=== PATIENT | male | born 1990 | race Caucasian/White ===

== ENCOUNTER 2018-10-27 10:29 | Emergency (ER) | payer OTHER ==
[~2018-10-27] VITALS: Ht 170.2 cm; Wt 79.4 kg
--- NOTE | 2018-10-27 10:34 | NUR ---
PT BIB SELF C/O FLU LIKE SYMPTOMS AND FEVER, PT IS AAOX4, NOT IN RESPIRATORY DISTRESS, HOOKED TO MONITOR, KEPT RESTED AND COMFORTABLE, WILL CONTINUE TO MONITOR.
--- NOTE | 2018-10-27 10:52 | NUR ---
SEEN AND EXAMINED BY .
--- NOTE | 2018-10-27 10:55 | NUR ---
PRODUCTION ASSISTANT AT BEDSIDE FOR XRAY.
--- NOTE | 2018-10-27 10:56 | NUR ---
IV LINE ESTABLISHED, BLOOD DRAWNED AND SENT TO LAB.
[2018-10-27] MEDS ORDERED: ONDANSETRON HCL/PF 4 MG/2 ML VIAL ONE (10:57)
[2018-10-27] MEDS ORDERED: KETOROLAC TROMETHAMINE 15 MG/ML VIAL ONE (10:57)
[2018-10-27] MEDS ORDERED: IV NS 0.9% 1,000 ML BAG IV ONE (11:00)
[2018-10-27] MEDS ORDERED: ONDANSETRON HCL/PF 4 MG/2 ML VIAL IVP ONE (11:00)
[2018-10-27] MEDS ORDERED: KETOROLAC TROMETHAMINE INJ 30 MG/ML VIAL IV ONE (11:00)
[2018-10-27 11:01] LABS: BASOPHILS % (AUTO) 0.3 % (0.0-2.0); EOSINOPHILS % (AUTO) 0.2 % (0.0-6.0); HEMATOCRIT 46 % (39-51); HEMOGLOBIN 15.5 g/dL (13.5-17.5); LYMPHOCYTES # (AUTO) 1.2 /CMM (0.8-4.8); LYMPHOCYTES % (AUTO) 13.1 % (20.0-44.0); MEAN CORPUSCULAR HGB CONC 34 g/dl (31.0-36.0); MEAN CORPUSCULAR VOLUME 88 fL (80-96); MONOCYTES # (AUTO) 1.1 /CMM (0.1-1.30); MONOCYTES % (AUTO) 11.6 % (2.0-12.0); NEUTROPHILS % (AUTO) 74.8 % (43.0-81.0); PLATELET COUNT (AUTO) 359 /CMM (150-450); WHITE BLOOD COUNT (AUTO) 9.4 K/uL (4.3-11.0)
[2018-10-27 11:06] LABS: CALCIUM, SERUM 9.3 mg/dL (8.5-10.1); CREATININE 1.4 mg/dL (0.6-1.3); POTASSIUM 3.6 mmol/L (3.5-5.1)
[2018-10-27 11:11] LABS: ALBUMIN 3.7 g/dL (3.4-5.0); BILIRUBIN,DIRECT 0.1 mg/dL (0.0-0.2); BILIRUBIN,TOTAL 0.3 mg/dL (0.2-1.0); TOTAL PROTEIN, SERUM 8.4 g/dL (6.4-8.2)
[2018-10-27] MEDS ORDERED: CEFTRIAXONE 1GM BAG (ER ONLY) 1 GM/50 ML PIGGYBACK IV ONE (11:30)
[2018-10-27] MEDS ORDERED: CEFTRIAXONE 1GM BAG (ER ONLY) 50 ML IV ONE (11:31)
[2018-10-27 12:14] VITALS: BP 122/73
--- NOTE | 2018-10-27 12:30 | NUR ---
IV removed. Catheter intact and site benign. Pressure and 4x4 applied to site. No bleeding noted. Patient discharged to home in stable condition. Written and verbal after care instructions given. Patient verbalizes understanding of instruction.
== END 2018-10-27 12:31 | disposition home or self-care (01) ==
LOC: ER 10:38
DX: J18.9 Pneumonia, unspecified organism (principal); E86.0 Dehydration; R11.10 Vomiting, unspecified; R19.7 Diarrhea, unspecified; K50.90 Crohn's disease, unspecified, without complications; F10.10 Alcohol abuse, uncomplicated; Y90.9 Presence of alcohol in blood, level not specified
CPT/HCPCS: 36415; 71045; 80048; 80076; 83690; 85025; 96365; 96375; 99284; J0696; J1885; J2405; J7030

== ENCOUNTER 2020-10-20 09:57 | Emergency (ER) | payer OTHER ==
[~2020-10-20] VITALS: Ht 170.2 cm; Wt 81.6 kg
[2020-10-20 10:09] VITALS: BP 133/81
--- NOTE | 2020-10-20 10:12 | NUR ---
AT BEDSIDE FOR EVAL.
[2020-10-20] MEDS ORDERED: IBUPROFEN 400 MG TABLET ONE (10:17)
[2020-10-20] MEDS ORDERED: ACETAMINOPHEN ES 500 MG TABLET ONE (10:17)
--- NOTE | 2020-10-20 10:24 | NUR ---
ECOLOGICAL RISK ASSESSOR AT BEDSIDE FOR XRAY.
[2020-10-20] MEDS ORDERED: ACETAMINOPHEN ES 500 MG TABLET PO ONE (10:30)
[2020-10-20] MEDS ORDERED: IBUPROFEN 400 MG TABLET PO ONE (10:30)
[2020-10-20] MEDS ORDERED: IBUP-1957 PO (10:50)
--- NOTE | 2020-10-20 10:59 | NUR ---
Patient discharged to home in stable condition. Written and verbal after care instructions given. Patient verbalizes understanding of instruction.
== END 2020-10-20 11:00 | disposition home or self-care (01) ==
LOC: ER 09:57
DX: M25.532 Pain in left wrist (principal); W18.39XA Other fall on same level, initial encounter; Y93.89 Activity, other specified; Y92.89 Other specified places as the place of occurrence of the external cause; Y99.8 Other external cause status
CPT/HCPCS: 73110